=== PATIENT | female | born 1960 | race Caucasian/White ===

== ENCOUNTER 2017-01-06 20:19 | Emergency (ER) | payer OTHER ==
[~2017-01-06] VITALS: Ht 167.6 cm; Wt 129.0 kg
[2017-01-06] MEDS ORDERED: ONDANSETRON 2 MG/ML (Z0FRAN) 2 ML VIAL IV ONE (20:55)
[2017-01-06] MEDS ORDERED: SODIUM CHLORIDE FLUSH 3 ML SYR IV PRN (20:55)
[2017-01-06] MEDS ORDERED: SODIUM CHLORIDE FLUSH 10 ML SYR IV PRN (20:55)
[2017-01-06] MEDS ORDERED: KETOROLAC 30 MG/ML (TORADOL) 1 ML VIAL IV ONE (20:55)
[2017-01-06 21:22] LABS: BASOPHILS % (AUTO) 1 % (0-2); EOSINOPHILS # (AUTO) 0.3 10^3uL; EOSINOPHILS % (AUTO) 3 % (0-4); LYMPHOCYTES # (AUTO) 2.8 X10^3; MEAN CORPUSCULAR HEMOGLOBIN 29.8 PG (26.0-34.0); MEAN CORPUSCULAR HGB CONC 33.7 g/dL (31.0-37.0); MEAN CORPUSCULAR VOLUME 88 FL (80-100); MEAN PLATELET VOLUME 10.5 FL (6.0-9.5); MONOCYTES # (AUTO) 0.6 X10^3; MONOCYTES % (AUTO) 8 % (3-11); NEUTROPHILS # (AUTO) 4.3 X10^3; NEUTROPHILS % (AUTO) 53 % (51-67); PLATELET COUNT 264 10^3uL (150-450); WHITE BLOOD COUNT 7.98 10^3uL (4.0-11.0)
[2017-01-06 21:27] LABS: ALBUMIN 4.4 g/dL (3.4-5.0); ANION GAP 14.4 MEQ/L (3-15); CALCULATED IONIZED CALCIUM 3.8 mg/dL (3.8-4.6); TOTAL PROTEIN 7.9 g/dL (6.4-8.5)
[2017-01-06 21:32] LABS: BILIRUBIN,URINE Negative (Negative); CLARITY,URINE Cloudy; GLUCOSE, URINE (UA) Negative (Negative); LEUKOCYTE ESTERASE ,URINE 1+ (Negative); PH,URINE 5.5 (5.0 - 8.0); UROBILINOGEN,URINE 0.2 mg/dL (0.2-1.0)
[2017-01-06 21:42] LABS: COLOR,URINE Dark Yellow
[2017-01-06 21:43] LABS: RBC,URINE >100 /HPF; URINE CENTRIFUGED VOLUME 12 mL
[2017-01-06] MEDS ORDERED: cefTRIAXone SODIUM 1,000 MG in SODIUM CHLORIDE 50 ML IV ONE (22:25)
[2017-01-06] MEDS ORDERED: ED- HYDROcodone/ACETAMINOPHEN 5MG/325MG (NORCO) 6 TABLETS/BTL PO ONE (22:30)
[2017-01-06] MEDS ORDERED: HYDROmorphone 1 MG/ML (DILAUDID) SYRINGE IV ONE (23:00)
[2017-01-06 23:25] VITALS: BP 139/68
== END 2017-01-06 23:33 | disposition home or self-care (01) ==
LOC: ED 20:22
DX: N30.90 Cystitis, unspecified without hematuria (principal); N20.0 Calculus of kidney
CPT/HCPCS: 36415; 74176; 80053; 81003; 81015; 82150; 83690; 85025; 87088; 96361; 96365; 96375; 99283; J0696; J1170; J1885; J2405; J7030; 99284

== ENCOUNTER → 2017-03-02 | Outpatient (CLI) | payer OTHER ==
[~2017-03-02] MED LIST: ABCT PO; ASCO100T6 PO; ATN50T PO; BUPR150T6 PO; CALC-140 PO; CEPH-507 PO; CITA40TA5 PO; HYDR-3702 PO; HYDR1CAP2 PO; LEVO75TA4 PO; MELO-255 PO; MULT-305 PO; VITA100T7 PO; atenolol
--- NOTE | 2017-03-02 11:52 | Diagnostic Imaging Report ---
PROCEDURE: MRI right joint lower extremity without contrast. TECHNIQUE: Multiplanar, multisequence non contrast-enhanced MRI of the right knee was accomplished. INDICATION: Knee pain. The anterior and posterior crucial ligaments are normal. The MCL complex is normal. The popliteus tendon, fibular collateral ligament, iliotibial tract, and biceps femoris tendons are intact. There is a small joint effusion. No articular cartilage lesions are identified. The patellar and quadriceps tendons are normal. Mild prepatellar edema and pretibial subcutaneous edema is present. The lateral meniscus shows no significant abnormality. Posterior horn of the medial meniscus is abnormal. Abnormal signals is present extending to the tibial articular surface compatible with a degenerative horizontal tear. IMPRESSION: 1. 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 Dictated by: Dictated on workstation # [id number]
== END ==
LOC: RAD 10:28
PROVIDERS: ATTEND Family Medicine
DX: M25.561 Pain in right knee (principal)
CPT/HCPCS: 73721